=== PATIENT | male | born 1955 | race Caucasian/White ===

== ENCOUNTER 2022-11-01 11:21 | Outpatient (CLI) | payer MEDICARE, OTHER ==
[~2022-11-01] VITALS: Ht 182.9 cm; Wt 111.4 kg
[2022-11-01 12:08] LABS: BASO % 0.7 % (0.0-2.0); EOS # 0.1 K/mm3 (0.0-0.7); GRAN # 2.8 K/mm3 (1.4-6.5); GRAN % 64.9 % (42.2-75.2); HEMATOCRIT 40.6 % (42.0-52.0); HEMOGLOBIN 14.3 g/dl (13.5-18.0); LYMPH % 22.2 % (20.0-51.0); MEAN CELL VOLUME 89 fl (80.0-100.0); MEAN CORPUSCULAR HEMOGLOBIN 31 pg (27-31); MEAN CORPUSCULAR HGB CONC 35 g/dl (33.0-37.0); MONO # 0.4 K/mm3 (0.1-0.6); PLATELET COUNT 155 K/mm3 (130-400); RED BLOOD COUNT 4.58 M/mm3 (4.20-5.60); REDCELL DISTRIBUTION WIDTH-CV 13.7 % (11.5-14.5)
[2022-11-01 12:22] LABS: CALCIUM 9.6 mg/dL (8.4-10.2); CREATININE, serum 0.74 mg/dL (0.72-1.25); POTASSIUM 3.5 mmol/L (3.5-4.5)
[2022-11-01] MEDS ORDERED: ZYLOPRIM 100MG100 MG PO (12:25)
[2022-11-01] MEDS ORDERED: LIPITOR 40MG TA40 MG PO (12:25)
[2022-11-01] MEDS ORDERED: ASPIRIN 81M81 MG/TA2 PO (12:25)
[2022-11-01] MEDS ORDERED: HYGROTON 2525 MG/TAB (12:26)
[2022-11-01] MEDS ORDERED: LOTENSIN40 MG PO (12:26)
[2022-11-01] MEDS ORDERED: TOPROL XL 50MG50 MG PO (12:27)
[2022-11-01 12:28] LABS: INR 1.7 (0.8-3.0); PROTHROMBIN TIME 19.8 SECONDS (9.7-12.8)
[2022-11-01] MEDS ORDERED: NORVASC 10MG10 MG PO (12:28)
[2022-11-01] MEDS ORDERED: LYRICA 50MG CAP50 MG PO (12:29)
[2022-11-01] MEDS ORDERED: BETAPACE 120MG120 MG PO (12:29)
[2022-11-01] MEDS ORDERED: COUMADIN 77.5 MG/TAB PO (12:31)
[2022-11-01 12:32] VITALS: BP 177/88; PULSE 61; TEMP 98.2
[2022-11-01 14:00] VITALS: BP 143/76; PULSE 64
--- NOTE | 2022-11-01 14:00 | NUR ---
RECIEVED PT FROM [facility]. PT ALERT AND ORIENTED. WATER OFFERED. PT REFUSED FOOD AT THIS TIME.
[2022-11-01 14:15] VITALS: BP 155/91; PULSE 65
[2022-11-01 14:30] VITALS: BP 159/89; PULSE 62
[2022-11-01 14:45] VITALS: BP 158/86; PULSE 61
[2022-11-01 15:00] VITALS: BP 179/96; PULSE 62
--- NOTE | 2022-11-01 15:38 | NUR ---
PT STATES UNDERSTANDING OF DISCHARGES. IV DC'D. WHEELED TO ENTRANCE PT SISTER PICKED UP PT
== END 2022-11-01 15:39 | disposition home or self-care (01) ==
LOC: COL.RAD 11:21
PROVIDERS: Internal Medicine Cardiovascular Disease
DX: I35.0 Nonrheumatic aortic (valve) stenosis (principal); I51.7 Cardiomegaly; I34.0 Nonrheumatic mitral (valve) insufficiency; Z95.2 Presence of prosthetic heart valve
CPT/HCPCS: J2370; J2704

== ENCOUNTER → 2023-11-23 | Day surgery (SDC) | payer MEDICARE, OTHER ==
[~2023-11-23] MED LIST: ALDACTONE 25MG25 M1 PO; AMOXICILLIN 25250 MG PO; ASPIRIN 81M81 MG/TA2 PO; Atropine 0.4 MG/ML 1 ML VIAL ONE; BETAPACE 120MG120 MG PO; COUMADIN 22.5 MG/TAB PO; COUMADIN 5MG5 MG/TAB PO; Etomidate 20 MG/10 ML VIAL IV ONE; HYGROTON 2525 MG/TAB PO; INDERAL 20MG20 MG PO; KLOR-CON 1010 MEQ PO; LIPITOR 40MG TA40 MG PO; LOTENSIN40 MG PO; LYRICA 50MG CAP50 MG PO; Lidocaine PF 2% (20 MG/ML) 5 ML VIAL ONE; NORVASC 10MG10 MG PO; NS 10 ML IV ONE; PACERONE400 MG PO; Phenylephrine 10 MG/ML VIAL ONE; TOPROL XL 50MG50 MG PO; ZEBETA 5MG5 MG PO; ZYLOPRIM 100MG100 MG PO; ePHEDrine 50 MG/ML VIAL ONE
== END ==
LOC: COL.CAR 06:45
DX: I48.91 Unspecified atrial fibrillation (principal)
CPT/HCPCS: J0461; J2371; J2704

== ENCOUNTER 2023-12-21 08:19 | Day surgery (SDC) | payer MEDICARE, OTHER ==
[2023-12-21] VITALS (7 sets, daily range): BP systolic 160–182; BP diastolic 94–106; PULSE 57–61
[~2023-12-21 08:19] MED LIST changes: -ALDACTONE 25MG25 M1 PO; -AMOXICILLIN 25250 MG PO; -Atropine 0.4 MG/ML 1 ML VIAL ONE; -COUMADIN 5MG5 MG/TAB PO; -Etomidate 20 MG/10 ML VIAL IV ONE; -INDERAL 20MG20 MG PO; -KLOR-CON 1010 MEQ PO; +LR 1,000 ML IV SCH; -Lidocaine PF 2% (20 MG/ML) 5 ML VIAL ONE; -NS 10 ML IV ONE; -PACERONE400 MG PO; -Phenylephrine 10 MG/ML VIAL ONE; -ZEBETA 5MG5 MG PO; -ePHEDrine 50 MG/ML VIAL ONE
[2023-12-21 09:26] LABS: HEMATOCRIT 39.9 % (42.0-52.0); HEMOGLOBIN 13.4 g/dl (13.5-18.0); MEAN CELL VOLUME 91 fl (80.0-100.0); MEAN CORPUSCULAR HEMOGLOBIN 31 pg (27-31); MEAN CORPUSCULAR HGB CONC 34 g/dl (33.0-37.0); MEAN PLATELET VOLUME 11.2 fl (7.4-10.4); PLATELET COUNT 147 K/mm3 (130-400); REDCELL DISTRIBUTION WIDTH-CV 13.9 % (11.5-14.5)
[2023-12-21 09:33] LABS: CALCIUM 9.7 mg/dL (8.4-10.2); CREATININE, serum 0.92 mg/dL (0.72-1.25); MAGNESIUM 1.7 mg/dL (1.6-2.6); POTASSIUM 3.7 mEq/L (3.5-4.5)
[2023-12-21] MEDS ORDERED: ALDACTONE 25MG25 M1 PO (09:38)
[2023-12-21] MEDS ORDERED: KLOR-CON 1010 MEQ PO (09:40)
[2023-12-21] MEDS ORDERED: PACERONE400 MG PO (09:41)
[2023-12-21] MEDS ORDERED: AMOXICILLIN 25250 MG PO (09:41)
[2023-12-21] MEDS ORDERED: ZEBETA 5MG5 MG PO (09:42)
[2023-12-21 09:43] LABS: INR 1.6 (0.8-3.0); PROTHROMBIN TIME 17.3 SECONDS (9.7-12.8)
[2023-12-21] MEDS ORDERED: NS Flush 10 ML SYRINGE PRN ICA (09:45)
[2023-12-21] MEDS ORDERED: 1/2 NS 1,000 ML IV SCH (09:45)
[2023-12-21 09:47] LABS: PARTIAL THROMBOPLASTIN TIME 34.3 SECONDS (26.0-37.0)
[2023-12-21 09:56] LABS: THYROID STIMULATING HORMONE 1.681 uIU/mL (0.350-4.940)
[2023-12-21] MEDS ORDERED: Lidocaine PF 2% (20 MG/ML) 5 ML VIAL ONE (10:34)
--- NOTE | 2023-12-21 11:20 | NUR ---
Pt's elevated BP's reported to Diana environmental management specialist who relays information to Dr Witt between cases. Pt did not take daily meds, including BP med this morning. New order given, see AUG. Pt is free of complaints, resting comfortably in bed. Family remains at bedside.
--- NOTE | 2023-12-21 12:00 | NUR ---
Pt returned to [facility] at 1147 post JOSELITO/CV. Pt alert, talkative. States throat slightly scratchy. Able to sip/swallow water without issue. RT called for post procedure EKG. Family at bedside. Pt denies further needs. Call light in reach.
[2023-12-21] MEDS ORDERED: amLODIPine 5 MG TAB PO ONE (13:00)
--- NOTE | 2023-12-21 13:00 | NUR ---
Pt's elevated BPs during recovery period reported to Diana rn lpn lvn who relayed the information to Dr Witt between cases. Pt did not take his daily meds, including BP med this morning prior to procedure. New order given, see AUG. Pt is free of complaints, resting comfortably in bed. Family remains at bedside.
[2023-12-21] MEDS ORDERED: COUMADIN 5MG5 MG/TAB PO (13:11)
[2023-12-21] MEDS ORDERED: INDERAL 20MG20 MG PO (13:13)
--- NOTE | 2023-12-21 13:43 | NUR ---
DC instructions and meds reviewed with pt and , both express understanding. Pt has been sitting up in chair at bedside since 1300. He is free of complaints. Gait is steady. He has refuses snack, but has taken water and coffee, no issues swallowing. Post procedure EKG was reviewed by Dr Witt. He is aware pt's BP remains elevated, but that norvasc was given as ordered. Pt is to follow up with his PCP for INR monitoring and management of warfarin dosing per Cardiology, pt and express understanding. Pt assisted by wheelchair to 's car with belongings.
[2023-12-21] MEDS ORDERED: NS Flush 10 ML SYRINGE BID ICA SCH (21:00)
== END 2023-12-21 13:43 | disposition home or self-care (01) ==
LOC: COL.CAR 08:19
PROVIDERS: Internal Medicine Cardiovascular Disease
DX: I48.0 Paroxysmal atrial fibrillation (principal); I08.1 Rheumatic disorders of both mitral and tricuspid valves; T82.03XA Leakage of heart valve prosthesis, initial encounter; I10 Essential (primary) hypertension; E78.5 Hyperlipidemia, unspecified; Z87.891 Personal history of nicotine dependence; Z79.01 Long term (current) use of anticoagulants; Y83.1 Surgical operation with implant of artificial internal device as the cause of abnormal reaction of the patient, or of later complication, without mention of misadventure at the time of the procedure
CPT/HCPCS: J0282; J2704; J7060; J7120